=== PATIENT | female | born 1990 | race Two or more races ===

== ENCOUNTER 2020-07-18 15:10 | Emergency (ER) | payer SELFPAY ==
[~2020-07-18] VITALS: Ht 162.6 cm; Wt 60.0 kg
[2020-07-18 15:31] VITALS: BP 130/61
[2020-07-18] MEDS ORDERED: HYDROcodone/APAP 5/325MG 1 TAB TABLET PO ONE (17:00)
[2020-07-18] MEDS ORDERED: AMOX1TAB61 PO (17:00)
[2020-07-18] MEDS ORDERED: CHLO15MO2 PO (17:00)
[2020-07-18] MEDS ORDERED: MUPI22OI2 TP (17:00)
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
== END 2020-07-18 17:13 | disposition home or self-care (01) ==
LOC: ER 15:10 → EEVIPCON 15:10 → ER 17:13
DX: S01.512A Laceration without foreign body of oral cavity, initial encounter (principal); L03.311 Cellulitis of abdominal wall; Y08.89XA Assault by other specified means, initial encounter; Y93.89 Activity, other specified; Y92.89 Other specified places as the place of occurrence of the external cause; Y99.8 Other external cause status
CPT/HCPCS: 99283

== ENCOUNTER 2020-11-27 07:04 | Emergency (ER) | payer OTHER ==
[~2020-11-27] VITALS: Ht 162.6 cm; Wt 55.5 kg
[~2020-11-27 07:04] MED LIST: AMOX1TAB61 PO; CHLO15MO2 PO; MUPI22OI2 TP
[2020-11-27 07:08] VITALS: BP 137/97
--- NOTE | 2020-11-27 07:32 | PHYS DOC ---
Past History Past Medical History: No Pertinent History Past Surgical History: No Surgical History Alcohol Use: Occasionally Adult General HPI HPI Patient is a 30-year-old female presenting for nausea vomiting diarrhea. Onset of symptoms was 4 days ago without any known inciting event, known sick contact or recent travel. Nothing known makes better or worse. Patient reports vague upper respiratory symptoms with worsening nausea, nonbilious nonbloody emesis and diarrhea. She was evaluated at local urgent care on the date to with the symptoms (Wednesday) and had a rapid Covid test performed that was negative. Reports she was given Zofran which is helped with nausea but reports within the past 48 hours worsening abdominal cramps and diarrhea prompting her to come back for evaluation today. She has been afebrile. She is not vaccinated against COVID-19. She has no prior abdominal surgeries, no known medical issues, takes no medications on a daily basis. She does admit she is currently on her period and suffering menstrual cramps as well Review of Systems Review of Systems Fourteen body systems of review of systems have been reviewed. See HPI for pertinent positives and negative responses, other foster all other systems are negative, non-pertinent or non-contributory Allergies Allergies Allergies Coded Allergies Type Severity Reaction Last Updated Verified No Known Drug Allergies 07/18/20 No Physical Exam Physical Exam Constitutional: Well developed, well nourished, no acute distress, non-toxic appearance. HENT: Normocephalic, atraumatic, bilateral external ears normal, oropharynx moist, no oral exudates, nose normal. Eyes: PERRLA, EOMI, conjunctiva normal, no discharge. Neck: Normal range of motion, no tenderness, supple, no stridor. Cardiovascular: Heart rate regular, sinus rhythm, no murmurs rubs or gallops Lungs & Thorax: Bilateral breath sounds clear to auscultation Abdomen: Bowel sounds normal, soft, no tenderness, no masses, no pulsatile masses. Nonsurgical abdomen, no peritoneal signs Skin: Warm, dry, no erythema, no rash. Back: No tenderness, no CVA tenderness. Extremities: No tenderness, no cyanosis, no clubbing, ROM intact, no edema. Neurologic: Alert and oriented X 3, grossly normal motor & sensory function, no focal deficits noted. Psychologic: Affect normal, judgement normal, mood normal. EKG EKG [] Radiology/Procedures Radiology/Procedures [] Heart Score C/O Chest Pain: No Risk Factors: Risk Factors: DM, Current or recent (<one month) smoker, HTN, HLP, family history of CAD, obesity. Risk Scores: Risk Factors: DM, Current or recent (<one month) smoker, HTN, HLP, family history of CAD, obesity. Course & Med Decision Making Course & Med Decision Making ABCs unremarkable. I disclosed entirety of ER findings and discussed most likely diagnosis of nausea vomiting diarrhea in an otherwise healthy and well- appearing patient. Other diagnoses were discussed with patient such as intra- abdominal and/or pelvic emergencies but all deemed less likely causes of patient's presentation. Patient unvaccinated, had rapid test performed that was negative on day 2 of symptoms, presenting symptoms are highly suspicious for COVID-19 and joint decision was made to test via PCR. Toradol given while in ER with improvement in pain, patient has sufficient supply of Zofran for use at home for as needed nausea. Plan of care discussed at length with need for close outpatient follow-up to review today's ER visit stressed. Strict return precautions were also discussed at length with good understanding verbalized by patient. Patient voiced understanding and agreement with the plan. Patient knows to come back for repeat evaluation if concerning signs or symptoms present prior to outpatient follow-up. Hemodynamically stable, ambulatory and well- appearing at time of disposition. Dragon Disclaimer Dragon Disclaimer This electronic medical record was generated, in whole or in part, using a voice recognition dictation system. Departure Departure: Impression: Primary Impression: Nausea, vomiting, and diarrhea Additional Impression: Person under investigation for COVID-19 Disposition: 01 HOME / SELF CARE / HOMELESS Condition: STABLE Referrals: PCP,ERIKA (PCP) Patient Instructions: Nausea and Vomiting Additional Instructions: You were seen for headache, cramps, nausea vomit diarrhea, body aches, and possible infection with COVID-19. Your physical exam was reassuring. We tested you for COVID-19 but this test does not come back for 1 to 2 days. In the meantime you need to quarantine yourself at home away from all other individuals, especially those who are elderly or have any other chronic health issues or an immunocompromised status. You should return to the ED if you develop worsening cough, shortness of breath, chest pain, or any other new or concerning symptoms. Alternate Tylenol and ibuprofen as needed for body aches and pain. If your test does come back positive you need to quarantine yourself for 10 days until symptom-free. You should make sure to drink plenty of fluids and get plenty of rest. Problem Qualifiers EVERETT RILEY DO Nov 27, 2020 07:32
[2020-11-27] MEDS ORDERED: KETOROLAC 30 MG/ML VIAL. IM ONE (08:00)
== END 2020-11-27 07:58 | disposition home or self-care (01) ==
LOC: ER 07:07
DX: R11.2 Nausea with vomiting, unspecified (principal); R19.7 Diarrhea, unspecified; R10.9 Unspecified abdominal pain; Z20.822 Contact with and (suspected) exposure to COVID-19
CPT/HCPCS: 96372; 99283; C9803; J1885; U0003

== ENCOUNTER 2021-04-08 03:46 | Emergency (ER) | payer OTHER ==
[~2021-04-08] VITALS: Ht 162.6 cm; Wt 58.2 kg
--- NOTE | 2021-04-08 04:08 | PHYS DOC ---
Past History Past Medical History: No Pertinent History Past Surgical History: No Surgical History Alcohol Use: None General Adult EDM: Chief Complaint: EARACHE/EAR PAIN HPI: HPI: " My Lt ear started hurting yesterday.. but really bad this morning..." Patient is a 31 year old female who presents with above hx and complaints of left ear pain. Patient states slight head cold past week. Left ear has been hurting the last 2 days. This morning she cannot hear out of her left ear. Did notice some blood from her left ear. Patient denies any trauma. No recent travel. No specific ill contacts. No history immunosuppression. Normally healthy. Patient has gotten COVID vaccination. Patient has not got flu vaccination this season. Review of Systems: Review of Systems: Constitutional: Denies fever or chills Eyes: Denies change in visual acuity HENT: Complains nasal congestion, left ear pain and decreased hearing in left ear Respiratory: Denies cough or shortness of breath Cardiovascular: Denies chest pain or edema GI: Denies abdominal pain, nausea, vomiting, bloody stools or diarrhea : Denies dysuria Musculoskeletal: Denies back pain or joint pain Integument: Denies rash Neurologic: Denies headache, focal weakness or sensory changes Endocrine: Denies polyuria or polydipsia Lymphatic: Denies swollen glands Psychiatric: Denies depression or anxiety Family History: Family History: Noncontributory to presentation Current Medications: Current Meds: See nursing for home meds Allergies: Allergies: Allergies Coded Allergies Type Severity Reaction Last Updated Verified No Known Drug Allergies 11/27/20 No Physical Exam: PE: Constitutional: Well developed, well nourished, moderate acute distress, non- toxic appearance. [] HENT: Normocephalic, atraumatic, right l external ears normal, left ear shows caked blood and pus. And ruptured TM. Oropharynx moist, no oral exudates, nose swollen turbinates and clear rhinorrhea. Nasal studs. Eyebrow studs. Eyes: PERRLA, EOMI, conjunctiva normal, no discharge. [] Neck: Normal range of motion, no tenderness, supple, no stridor. [] Cardiovascular:Heart rate regular rhythm, no murmur [] Lungs & Thorax: Bilateral breath sounds equal apex few scattered wheezes on auscultation [] Abdomen: Bowel sounds normal, soft, no tenderness, no masses, no pulsatile masses. [] Skin: Warm, dry, no erythema, no rash. [] Back: No tenderness, no CVA tenderness. [] Extremities: No tenderness, no cyanosis, no clubbing, ROM intact, no edema. [] Neurologic: Alert and oriented X 3, normal motor function, normal sensory function, no focal deficits noted. Air conduction in both ears but marked decreased in the left. Bone-conduction more in the left ear. Psychologic: Affect anxious,, judgement normal, mood normal. [] Current Patient Data: Vital Signs: Vital Signs Date Time Temp Pulse Resp B/P (MAP) Pulse Ox O2 Delivery O2 Flow Rate FiO2 04/08/21 03:54 97.5 64 16 131/66 (87) 100 Room Air EKG: EKG: [] Radiology/Procedures: Radiology/Procedures: [] Heart Score: C/O Chest Pain: N/A Risk Factors: Risk Factors: DM, Current or recent (<one month) smoker, HTN, HLP, family history of CAD, obesity. Risk Scores: Score 0 - 3: 2.5% MACE over next 6 weeks - Discharge Home Score 4 - 6: 20.3% MACE over next 6 weeks - Admit for Clinical Observation Score 7 - 10: 72.7% MACE over next 6 weeks - Early Invasive Strategies Course & Med Decision Making: Course & Med Decision Making Pertinent Labs and Imaging studies reviewed. (See chart for details) Patient to use Cipro eardrops 2 drops left ear 4 times a day. Patient take amoxicillin 500 mg 3 times a day. For 7 days. Patient take Diflucan 100 mg daily for 3 days after completing amoxicillin. Take Benadryl 25 to 50 mg up to 4 times a day for fluid behind TM. Follow-up primary care. Return if any concerns. Impression: 1. Left otitis 2. Ruptured left TM [] Dragon Disclaimer: Dragon Disclaimer: This electronic medical record was generated, in whole or in part, using a voice recognition dictation system. Departure Departure: Referrals: PCP,NO (PCP) Scripts Fluconazole (DIFLUCAN) 100 Mg Tablet 100 MG PO DAILY for post antibitic for 3 Days, #3 TAB Prov: ANTHONY MEYER MD 04/08/21 Amoxicillin (AMOXICILLIN) 500 Mg Capsule 500 MG PO TID for otitis for 7 Days, #21 CAP Prov: ANTHONY MEYER MD 04/08/21 ANTHONY MEYER MD Apr 08, 2021 04:08
[2021-04-08] MEDS ORDERED: CIPROFLOXACIN 0.3% OPHTH SOLUTION 2.5ML BOTTLE. ONE (04:24)
[2021-04-08] MEDS ORDERED: FLUC100T7 PO (04:28)
[2021-04-08] MEDS ORDERED: AMOX500C PO (04:28)
[2021-04-08] MEDS ORDERED: ACETAMINOPHEN 500 MG TABLET PO ONE (04:30)
[2021-04-08] MEDS ORDERED: CIPROFLOXACIN 0.3% OPHTH SOLUTION 2.5ML BOTTLE. AS ONE (04:30)
[2021-04-08] MEDS ORDERED: AMOXICILLIN 250 MG CAPSULE PO ONE (04:30)
[2021-04-08] MEDS ORDERED: NEOMYCIN/POLYMYXIN/HC OTIC SUSPENSION 10ML BOTTLE. AS ONE (04:30)
[2021-04-08 04:45] VITALS: BP 128/70
== END 2021-04-08 04:50 | disposition home or self-care (01) ==
LOC: ER 03:46
DX: H66.92 Otitis media, unspecified, left ear (principal); H72.92 Unspecified perforation of tympanic membrane, left ear
CPT/HCPCS: 99283; 99284